=== PATIENT | male | born 1970 | race Caucasian/White ===

== ENCOUNTER 2020-01-25 16:42 | Emergency (ER) | payer BC, OTHER ==
[~2020-01-25] VITALS: Ht 177.8 cm; Wt 72.7 kg
[2020-01-25] MEDS ORDERED: proparacaine 0.5% ophthalmic drops 15ml EACHEYE ONE (16:50)
[2020-01-25] MEDS ORDERED: VIG0.5OS LEFTEYE (17:07)
[2020-01-25 17:23] VITALS: BP 134/88
== END 2020-01-25 17:25 | disposition home or self-care (01) ==
LOC: ER 16:42
DX: S05.02XA Injury of conjunctiva and corneal abrasion without foreign body, left eye, initial encounter (principal); Z79.2 Long term (current) use of antibiotics; X58.XXXA Exposure to other specified factors, initial encounter; Y93.89 Activity, other specified; Y92.89 Other specified places as the place of occurrence of the external cause; Y99.8 Other external cause status
CPT/HCPCS: 99283

== ENCOUNTER 2020-04-13 22:21 | Emergency (ER) | payer BC ==
[~2020-04-13] VITALS: Ht 177.8 cm; Wt 72.7 kg
[2020-04-13] MEDS ORDERED: ketorolac trometh. 30mg/ml inj. IM ONE (22:30)
[2020-04-13] MEDS ORDERED: OXYC-149 PO ×3 (23:01→23:16)
[2020-04-13 23:35] VITALS: BP 146/81
== END 2020-04-13 23:32 | disposition home or self-care (01) ==
LOC: ER 22:22 → EEVIPCON 22:22 → ER 23:32
DX: S42.002A Fracture of unspecified part of left clavicle, initial encounter for closed fracture (principal); M25.512 Pain in left shoulder; Z79.899 Other long term (current) drug therapy; W19.XXXA Unspecified fall, initial encounter; Y93.89 Activity, other specified; Y92.89 Other specified places as the place of occurrence of the external cause; Y99.8 Other external cause status
CPT/HCPCS: 29105; 73030; 96372; 99283; J1885

== ENCOUNTER 2020-05-08 15:12 | Emergency (ER) | payer BC ==
[~2020-05-08] VITALS: Ht 177.8 cm; Wt 73.0 kg
[~2020-05-08 15:12] MED LIST: OXYC-149 PO
[2020-05-08 15:16] VITALS: BP 131/84
== END 2020-05-08 15:26 | disposition home or self-care (01) ==
LOC: EEVIPCON 15:12 → ER 15:12
DX: Z20.828 Contact with and (suspected) exposure to other viral communicable diseases (principal); Z79.899 Other long term (current) drug therapy
CPT/HCPCS: 36415; 99283; U0003

== ENCOUNTER 2020-05-09 14:59 | Emergency (ER) | payer BC ==
[~2020-05-09] VITALS: Ht 180.3 cm; Wt 68.2 kg
[2020-05-09] MEDS ORDERED: naproxen 500mg tablet PO ONE (15:15)
[2020-05-09] MEDS ORDERED: ketorolac trometh inj. 60 MG/2 ML VIAL IM ONE (15:20)
[2020-05-09] MEDS ORDERED: BUPIVAcaine/PF 7.5mg/ml (0.75%) 10ml vial IJ ONE (16:05)
[2020-05-09 16:29] VITALS: BP 137/83
--- NOTE | 2020-05-09 16:30 | NUR ---
DR. RIVERA AT BEDSIDE.
[2020-05-09] MEDS ORDERED: LIDOcaine 5% patch TP SCH (16:35)
== END 2020-05-09 16:52 | disposition home or self-care (01) ==
LOC: ER 14:59
DX: S20.222A Contusion of left back wall of thorax, initial encounter (principal); R22.2 Localized swelling, mass and lump, trunk; M79.89 Other specified soft tissue disorders; M25.512 Pain in left shoulder; Z79.899 Other long term (current) drug therapy; X58.XXXA Exposure to other specified factors, initial encounter; Y93.89 Activity, other specified; Y92.89 Other specified places as the place of occurrence of the external cause; Y99.8 Other external cause status
CPT/HCPCS: 10160; 76881; 96372; 99284; J1885

== ENCOUNTER 2020-05-09 18:28 | Emergency (ER) | payer BC ==
[~2020-05-09] VITALS: Ht 179.1 cm; Wt 72.7 kg
[2020-05-09 21:16] VITALS: BP 129/98
== END 2020-05-09 21:18 | disposition home or self-care (01) ==
LOC: ER 18:28 → EEVIPCON 18:28 → ER 21:18
DX: S40.012A Contusion of left shoulder, initial encounter (principal); M54.9 Dorsalgia, unspecified; Z98.890 Other specified postprocedural states; Z79.899 Other long term (current) drug therapy; W19.XXXA Unspecified fall, initial encounter; Y93.89 Activity, other specified; Y92.89 Other specified places as the place of occurrence of the external cause; Y99.8 Other external cause status
CPT/HCPCS: 72157; 99284; 99285

== ENCOUNTER 2023-01-25 05:47 | Day surgery (SDC) | payer BC ==
[2023-01-19 14:15] LABS: BASOPHILS # (AUTO) 0.1 X10'3 (0-0.2); BASOPHILS % (AUTO) 1.3 % (0-1); EOSINOPHILS # (AUTO) 0.1 X10'3 (0-0.9); EOSINOPHILS % (AUTO) 1.9 % (0-6); LYMPHOCYTES # (AUTO) 2.3 X10'3 (1.1-4.8); LYMPHOCYTES % (AUTO) 30.2 % (21-51); MEAN CORPUSCULAR HEMOGLOBIN 31.4 PG (27.0-31.0); MEAN CORPUSCULAR HGB CONC 34.1 g/dL (33.0-36.5); MEAN CORPUSCULAR VOLUME 92.1 FL (78-98); MEAN PLATELET VOLUME 8.1 FL (7.4-10.4); MONOCYTES # (AUTO) 0.7 X10'3 (0-0.9); MONOCYTES % (AUTO) 9.1 % (2-12); NEUTROPHILS # (AUTO) 4.3 X10'3 (1.8-7.7); NEUTROPHILS % (AUTO) 57.5 % (42-75); PRE OP HEMATOCRIT 45.1 % (42.0-52.0); PRE OP HEMOGLOBIN 15.4 g/dL (14.0-17.9); PRE OP PLATELET COUNT 277 X10'3 (140-440); RED BLOOD COUNT 4.89 X10'6 (4.70-6.10); RED CELL DISTRIBUTION WIDTH 13.1 % (11.5-14.5)
[2023-01-19 14:30] LABS: ALBUMIN 4.3 G/DL (3.4-5.0); ALBUMIN/GLOBULIN RATIO 1.2 (1.1-1.5); ALKALINE PHOSPHATASE 74 IU/L (46-116); BLOOD UREA NITROGEN 22 MG/DL (7-18); BUN/CREATININE RATIO 20.4 (5.4-32.0); CALCIUM 9.4 MG/DL (8.5-10.1); CHLORIDE 102 MMOL/L (99-107); CREATININE 1.08 MG/DL (0.60-1.10); PRE OP ALT 26 U/L (30-65); PRE OP ANION GAP 4 (8-16); PRE OP AST 28 U/L (10-37); PRE OP BILIRUB, TOTAL 0.6 MG/DL (0.0-1.0); PRE OP GLUCOSE 83 MG/DL (70-104); PRE OP POTASSIUM 4.5 MMOL/L (3.4-5.1); PRE OP SODIUM 138 MMOL/L (135-145); TOTAL PROTEIN 7.8 G/DL (6.4-8.2); eGFR 72 ML/MIN
[2023-01-20 13:06] VITALS: BP 105/61
--- NOTE | 2023-01-20 16:04 | NUR ---
PATIENT SURGERY CANCELLED DUE TO NO ALLOGRAPH AVAILABLE. PIV D/C. PATIENT SENT HOME WITH .
[~2023-01-25] VITALS: Ht 177.8 cm; Wt 73.0 kg
[2023-01-25] VITALS (8 sets, daily range): BP systolic 15–121; BP diastolic 61–66
[~2023-01-25 05:47] MED LIST changes: +BUPIVAcaine/PF 2.5 mg/ml (0.25%) 30ml vial ONE; +DEXT30CA6 PO; -OXYC-149 PO; +VALA100031 PO; +cefazolin 2gm/D5W 100mL 100 ML IV ONE; +epiNEPHrine 1 mg/ml 30ml MDV ONE; +epiNEPHrine 1 mg/ml inj ONE; +famotidine 20mg tablet PO ONE; +ringers solution, lacted 1,000 ML IV SCH
[2023-01-25] MEDS ORDERED: BUPIVAcaine/PF 2.5 mg/ml (0.25%) 30ml vial ONE (06:54)
[2023-01-25] MEDS ORDERED: cloNIDine hcl/PF 100mcg/ml inj ONE (07:17)
[2023-01-25] MEDS ORDERED: fentaNYL/PF 50MCG/1 ML 2ML syringe ONE (07:19)
[2023-01-25] MEDS ORDERED: midazolam 1 mg/ML 2ml injection ONE (07:24)
--- NOTE | 2023-01-25 07:25 | NUR ---
PT HERE TODAY FOR SURGERY. PT LEFT ON 01-20-23 DUE TO O.R. NOT HAVING THE ALLOGRAFT THAT IS NEEDED. NO CHANGES FOR PT SINCE TUESDAY. 20G PIV STARTED IN RIGHT FA ATTEMPTS X1 PT TOLERATED WELL, I.S. INSTRUCTIONS GIVEN AND PT PRACTICING PRIOR TO BE TAKEN TO THE O.R.. PT'S S.O. AT BEDSIDE. QUESTIONS ENCOURAGED AND ANSWERED.
[2023-01-25] MEDS ORDERED: sevoflurane 250ml liquid IH ONE (07:30)
[2023-01-25] MEDS ORDERED: acetaminophen 1,000mg/100ml IV 100 ML IV PRN (08:05)
[2023-01-25] MEDS ORDERED: labetalol 20mg/4ml (5mg/ml) syringe IV PRN (08:05)
[2023-01-25] MEDS ORDERED: morphine 2 MG/ML inj. syringe IV PRN (08:05)
[2023-01-25] MEDS ORDERED: ringers solution, lacted 1,000 ML IV SCH (08:05)
[2023-01-25] MEDS ORDERED: proCHLORperazine 10 MG/2 ml inj IV PRN (08:05)
[2023-01-25] MEDS ORDERED: hydrALAZINE 20mg/ml inj. IV PRN (08:05)
[2023-01-25] MEDS ORDERED: meperidine/PF 25mg/ml syringe IV PRN ×3 (08:05)
[2023-01-25] MEDS ORDERED: morphine 4 MG/ML inj SYRINge IV PRN (08:05)
[2023-01-25] MEDS ORDERED: ketorolac trometh. 30mg/ml inj. IV ONE (08:05)
[2023-01-25] MEDS ORDERED: ondansetron/PF 4mg/2ml inj IV PRN (08:05)
[2023-01-25] MEDS ORDERED: rocuronium 10mg/ml inj IV ONE (08:07)
[2023-01-25] MEDS ORDERED: ROPIVAcaine 0.5% (5mg/ml) 30ml vial ONE ×2 (08:07)
[2023-01-25] MEDS ORDERED: 0.9 % SODIUM CHLORIDE 10 ML VIAL ONE (08:07)
[2023-01-25] MEDS ORDERED: ePHEDrine 50MG/ML INJ. ONE (08:07)
[2023-01-25] MEDS ORDERED: LIDOcaine 2% (20mg/ml) 5ml vial ONE (08:07)
[2023-01-25] MEDS ORDERED: dexamethasone sod phosphate 4mg/ml inj. ONE (08:07)
[2023-01-25] MEDS ORDERED: ondansetron/PF 4mg/2ml inj ONE (08:07)
[2023-01-25] MEDS ORDERED: propofol inj 20 ML IV ONE (08:07)
[2023-01-25] MEDS ORDERED: ketorolac trometh. 30mg/ml inj. ONE (09:49)
[2023-01-25] MEDS ORDERED: HYDROcodone/acetaminophen 10/325mg tab PO PRN (09:55)
--- NOTE | 2023-01-25 10:00 | NUR ---
Received from OR via BED, accompanied by Anesthesiologist and report given by Anesthesiologist. PATIENT WAKING UP, NO S/S OF PAIN, V/S WNL, SCD ON, 20G TO RUE, LEFT drsg to shoulder-CDI
--- NOTE | 2023-01-25 11:10 | NUR ---
PATIENT A&OX4, DENIES PAIN, V/S WNL, SCD ON, 20G TO RUE D/C, LEFT drsg to shoulder-CDI WITH IMMOBILIZER SLING ON.I HAVE REVIEWED D/C INSTRUCTIONS WITH PATIENT and they have verbalized understanding patient d/c home with all belongings and family gave transport home.
== END 2023-01-25 11:10 | disposition home or self-care (01) ==
LOC: PAS 05:47
PROVIDERS: ATTEND Orthopaedic Surgery
DX: M75.122 Complete rotator cuff tear or rupture of left shoulder, not specified as traumatic (principal); S43.015A Anterior dislocation of left humerus, initial encounter; M19.012 Primary osteoarthritis, left shoulder; M94.212 Chondromalacia, left shoulder; F90.9 Attention-deficit hyperactivity disorder, unspecified type; G89.18 Other acute postprocedural pain; Z79.899 Other long term (current) drug therapy; Z72.89 Other problems related to lifestyle; Z98.890 Other specified postprocedural states; Z87.891 Personal history of nicotine dependence; X58.XXXA Exposure to other specified factors, initial encounter; Y93.89 Activity, other specified; Y92.89 Other specified places as the place of occurrence of the external cause; Y99.8 Other external cause status
CPT/HCPCS: 29826; 29827; 36415; 64415; 80053; 82948; 85025; C1713; J0690; J0735; J1100; J1885; J2250; J2405; J2704; J2795; J3010; J3490; J7120; Z7506; Z7508; Z7512; A4565; A4618; A6449; A7000; J0171